=== PATIENT | female | born 1960 | race African-American/Black ===

== ENCOUNTER 2024-06-02 11:54 | Inpatient (IN) | payer MEDICARE, MEDICAID ==
[~2024-06-02] VITALS: Ht 165.1 cm; Wt 78.9 kg
[2024-06-02] MEDS: ALBUTEROL (0.083%) 2.5MG/3ML NEB HHN STA (12:21)
[2024-06-02] MEDS: IPRATROPIUM BROMIDE (0.02%) 0.5MG/2.5ML NEB HHN STA (12:21)
[2024-06-02 12:42] LABS: CHLORIDE 107 mEq/L (98-107); POTASSIUM 3.6 mEq/L (3.5-5.1); SODIUM 142 mEq/L (136-145)
[2024-06-02 12:43] LABS: CALCIUM 9.6 mg/dL (8.7-10.4); CARBON DIOXIDE 29 mEq/L (21-32)
[2024-06-02] MEDS: METHYLPREDNISOLONE SOD SUCC 125MG/2ML (ACT-O-VIAL) IV STA (12:43)
[2024-06-02 12:44] LABS: BASOPHILS % 0.4 % (0.0-2.0); EOSINOPHILS % 2.7 % (0.0-5.0); HEMATOCRIT. 39.1 % (36.0-48.0); HEMOGLOBIN. 12.5 g/dL (12.0-16.0); LYMPHOCYTES % 28.9 % (20.0-50.0); MEAN CORPUSCULAR HEMOGLOBIN 26.5 pg (28.0-32.0); MEAN CORPUSCULAR HGB CONC 32.1 g/dL (31.0-37.0); MEAN CORPUSCULAR VOLUME 82.5 fL (81.0-99.0); MEAN PLATELET VOLUME 8.1 fl (7.4-10.4); MONOCYTES % 7.4 % (2.0-8.0); NEUTROPHILS % 60.6 % (40.0-76.0); PLATELET 271 x1000/uL (130-400); RED BLOOD CELL COUNT 4.74 mill/uL (4.2-5.4); RED CELL DISTRIBUTION WIDTH 17.5 % (11.6-14.6); WHITE BLOOD COUNT 6.5 x1000/uL (4.5-11.0)
[2024-06-02] MEDS: MAGNESIUM 2 G PREMIX 50 ML IV ONE (12:44)
[2024-06-02 12:48] LABS: CREATININE 0.6 mg/dL (0.6-1.0); GLUCOSE 111 mg/dL (70-105); UREA NITROGEN BLOOD 10 mg/dL (9-23)
[2024-06-02 12:50] LABS: TROPONIN I HIGH SENSITIVITY 4 ng/L (3.0-34)
[2024-06-02 13:26] VITALS: PULSE 76; RESP 18; O2SAT 97
[2024-06-02] MEDS ORDERED: IPRATROPIUM/ALBUTEROL 0.5-3(2.5)MG/3ML NEB HHN PRN (14:00)
[2024-06-02] MEDS ORDERED: CLONIDINE 0.1MG TABLET PO PRN (14:00)
[2024-06-02] MEDS ORDERED: DOCUSATE SODIUM 100MG CAPSULE PO PRN (14:00)
[2024-06-02] MEDS ORDERED: LORAZEPAM 0.5MG TABLET PO PRN (14:00)
[2024-06-02] MEDS ORDERED: ACETAMINOPHEN 325MG TABLET PO PRN (14:00)
[2024-06-02] MEDS ORDERED: DEXTROSE 50% WATER 50ML SYRINGE IV PRN (14:00)
[2024-06-02] MEDS ORDERED: ONDANSETRON HCL 4MG/2ML INJ IV PRN (14:00)
[2024-06-02 16:00] VITALS: BP 127/52; PULSE 78; RESP 17; TEMP 36.4; O2SAT 100
[2024-06-02] MEDS: INSULIN LISPRO 100 UNITS/ML SUBCUT SCH (17:40)
[2024-06-02 17:44] LABS: ETHANOL BLOOD < 10 mg/dL (<10); TRIGLYCERIDE 85 mg/dL (0-150)
[2024-06-02 17:45] LABS: LDL CHOLESTEROL 67 mg/dL (5-100); TROPONIN I HIGH SENSITIVITY 4 ng/L (3.0-34)
[2024-06-02 17:46] LABS: CHOLESTEROL 186 mg/dL (<200); HDL CHOLESTEROL 85 mg/dL (>65)
[2024-06-02] MEDS: BLOOD SUGAR DIAGNOSTIC STRIP TEST SCH (18:08)
[2024-06-02 19:07] VITALS: BP 127/52; PULSE 78; RESP 17; TEMP 36.4
[2024-06-02 20:00] VITALS: BP 136/63; PULSE 80; RESP 18; TEMP 36.3; O2SAT 100
[2024-06-02] MEDS: METHYLPREDNISOLONE SOD SUCC 125MG/2ML (ACT-O-VIAL) IV SCH (21:17)
[2024-06-03] VITALS (8 sets, daily range): BP systolic 129–152; BP diastolic 55–76; PULSE 69–87; RESP 18–20; TEMP 36.4–36.9; O2SAT 96–100
[2024-06-03 08:16] LABS: BASOPHILS % 0.1 % (0.0-2.0); HEMATOCRIT. 36.1 % (36.0-48.0); HEMOGLOBIN. 11.4 g/dL (12.0-16.0); LYMPHOCYTES % 12.4 % (20.0-50.0); MEAN CORPUSCULAR HGB CONC 31.7 g/dL (31.0-37.0); MEAN CORPUSCULAR VOLUME 82.1 fL (81.0-99.0); MEAN PLATELET VOLUME 8.2 fl (7.4-10.4); MONOCYTES % 5.8 % (2.0-8.0); NEUTROPHILS % 81.7 % (40.0-76.0); PLATELET 269 x1000/uL (130-400); RED CELL DISTRIBUTION WIDTH 17.6 % (11.6-14.6); WHITE BLOOD COUNT 6.8 x1000/uL (4.5-11.0)
[2024-06-03 08:29] LABS: CARBON DIOXIDE 28 mEq/L (21-32); CHLORIDE 106 mEq/L (98-107); POTASSIUM 4.3 mEq/L (3.5-5.1); SODIUM 142 mEq/L (136-145)
[2024-06-03 08:35] LABS: CREATININE 0.8 mg/dL (0.6-1.0); GLUCOSE 140 mg/dL (70-105); UREA NITROGEN BLOOD 15 mg/dL (9-23)
[2024-06-03] MEDS: GUAIFENESIN 200MG/10ML SUGAR FREE UDC PO PRN (08:39)
[2024-06-03] MEDS ORDERED: GUAIFENESIN/DM 600MG/30MG ER TAB 12HR PO PRN (12:15)
[2024-06-03] MEDS: DOXYCYCLINE 100MG/100ML 100 ML IV SCH (14:16)
[2024-06-03] MEDS: METHYLPREDNISOLONE SOD SUCC 40MG/ML (ACT-O-VIAL) IV SCH (14:17)
[2024-06-03] MEDS: ACETAMINOPHEN 325MG TABLET PO PRN (14:17)
[2024-06-03] MEDS ORDERED: SERT-112 PO (18:43)
[2024-06-03 20:57] LABS: CLARITY URINE CLEAR (CLEAR); GLUCOSE URINE NEGATIVE (NEGATIVE); KETONES URINE NEGATIVE (NEGATIVE); LEUKOCYTE ESTERASE URINE TRACE (NEGATIVE); NITRITE URINE NEGATIVE (NEGATIVE); OCCULT BLOOD URINE NEGATIVE (NEGATIVE); PROTEIN URINE NEGATIVE (NEGATIVE)
[2024-06-03 21:12] LABS: *AMPHETAMINES SCREEN URINE NEGATIVE (NEGATIVE); *BARBITURATES SCREEN URINE NEGATIVE (NEGATIVE); *BENZODIAZEPINES SCREEN URINE NEGATIVE (NEGATIVE); *COCAINE SCREEN URINE PRESUMPTIVE POSITIVE (NEGATIVE); CANNABINOID URINE SCREEN NEGATIVE (NEGATIVE); ECSTASY MDMA SCREEN URINE NEGATIVE (NEGATIVE); METHADONE URINE SCREEN NEGATIVE (NEGATIVE); OPIATES URINE SCREEN NEGATIVE (NEGATIVE); PHENCYCLIDINE URINE SCREEN NEGATIVE (NEGATIVE)
[2024-06-03 21:16] LABS: COLOR URINE STRAW (YELLOW); RBC URINE NONE SEEN /hpf (0-2); SQUAMOUS EPITHELIAL CELL URINE RARE /lpf (RARE/1+); WBC URINE 0-2 /hpf (0-2)
[2024-06-03 21:17] LABS: BACTERIA URINE NONE SEEN
[2024-06-03] MEDS: IPRATROPIUM/ALBUTEROL 0.5-3(2.5)MG/3ML NEB HHN SCH (21:23)
[2024-06-03] MEDS: BUDESONIDE 0.5MG/2ML NEB HHN SCH (21:23)
[2024-06-04] VITALS (11 sets, daily range): BP systolic 130–151; BP diastolic 51–70; PULSE 67–89; RESP 18–22; TEMP 36.2–36.9; O2SAT 96–100
[2024-06-04] MEDS: SERTRALINE HCL 50MG TABLET PO SCH (10:47)
[2024-06-04] MEDS: RISPERIDONE 0.5MG TABLET PO SCH (20:41)
[2024-06-05] VITALS (8 sets, daily range): BP systolic 110–141; BP diastolic 49–65; PULSE 71–89; RESP 16–20; TEMP 36–36.8; O2SAT 97–98
[2024-06-05] MEDS: DOXYCYCLINE HYCLATE 100MG CAPSULE PO SCH (09:22)
[2024-06-05] MEDS ORDERED: SERT-422 MT (12:00)
[2024-06-05] MEDS ORDERED: FLUT1DIS3 INH (12:00)
[2024-06-05] MEDS ORDERED: RISP0.5T79 MT (12:00)
[2024-06-05] MEDS ORDERED: DOXY150T8 MT (12:00)
[2024-06-05] MEDS ORDERED: ALBU18HF2 IH (12:00)
[2024-06-05] MEDS ORDERED: P20 MT (12:00)
== END 2024-06-05 18:55 | disposition home or self-care (01) | DRG 202 ==
LOC: ER 11:54 → 8WST 12:57 → EDBEDREQ 12:58 → EDBEDREQTM 12:58
PROVIDERS: ADMIT Internal Medicine; ATTEND Internal Medicine
DX: J45.901 Unspecified asthma with (acute) exacerbation (principal); M35.1 Other overlap syndromes; E11.65 Type 2 diabetes mellitus with hyperglycemia; I10 Essential (primary) hypertension; T38.0X5A Adverse effect of glucocorticoids and synthetic analogues, initial encounter; F32.A Depression, unspecified; R26.89 Other abnormalities of gait and mobility; F17.210 Nicotine dependence, cigarettes, uncomplicated; F32.9 Major depressive disorder, single episode, unspecified; F20.9 Schizophrenia, unspecified; Z71.6 Tobacco abuse counseling; Z79.51 Long term (current) use of inhaled steroids; Y92.89 Other specified places as the place of occurrence of the external cause
CPT/HCPCS: 36415; 71045; 80048; 80061; 80305; 80320; 81003; 82040; 82962; 83036; 83880; 84484; 85025; 93005; 93970; 94070; 94640; 94760; 97162; 97166; 98960; 99285; A4606; J1815; J2919; J3475; J3490; J7626; G0480